=== PATIENT | female | born 1985 | race Caucasian/White ===

== ENCOUNTER 2017-10-05 18:34 | Emergency (ER) | payer SELFPAY ==
[~2017-10-05] VITALS: Ht 167.6 cm; Wt 49.9 kg
[2017-10-05] MEDS ORDERED: ALPRAZOLAM 0.25 MG TABLET PO ONE (20:30)
--- NOTE | 2017-10-05 20:40 | NUR ---
Patient discharged to home in stable conditon. Written and verbal after care instructions given. Patient verbalizes understanding of instructions.
[2017-10-05] MEDS ORDERED: ALPRAZOLAM 0.5 MG TABLET ONE (20:47)
== END 2017-10-05 20:41 | disposition home or self-care (01) ==
LOC: ER 18:36
DX: F41.1 Generalized anxiety disorder (principal); F41.0 Panic disorder [episodic paroxysmal anxiety]; F10.20 Alcohol dependence, uncomplicated; Z88.5 Allergy status to narcotic agent
CPT/HCPCS: 99284; A4663